=== PATIENT | male | born 1945 | race African-American/Black ===

== ENCOUNTER 2024-09-05 09:50 | Outpatient (REF) | payer MEDICAID, SELFPAY ==
--- OUTSIDE RECORDS SUMMARY | 2024-09-05 11:23 | XMS_ITS | Encounter Summary ---
Author Organization [facility] [employer] Address [address] [facility] [address] [place] [address] Care Team Providers Care Ferry Pilot Name Role Phone Unavailable Primary Care Provider Unavailabl e Reason for Visit * Reason Onset Date Comments chart prep 08/30/2024 Encounter Details Date Type Department Care Team (Late st Contact Info) Description 08/30/[address] [address] Jimi Quezada MA chart prep Social History Tobacco Use Types Packs/Day Years Used Date Smoking Tobacco: Never Assessed Sex and Gender Information Value Date Recorded Sex Assigned at Male 05/03/2022 10:37 AM EDT Legal Sex Male 10:37 AM EDT Gender Identity Male 09/03/2024 8:49 AM EST Sexual Orientation Straight 09/03/2024 8: 49 AM EST documented as of this encounter Miscellaneous Notes * Telephone Encounter - Jimi Quezada MA - 08/30/2024 3:55 PM EST Chart Prep Labs: not applicable Images: not applicable Vaccines due: yes Referrals: n a Screenings: new patient Overdue care gaps: Sbirt, SDOH, PHQ-9, Oral Health, ANI-7 documented in this encounter Plan of Treatment Upcoming Encounters Date Type Department Care Team (Late st Contact Info) Description 09/18/2024 11:30 AM EDT Telemedicine [address] [address] 12/03/2024 10:00 AM EDT Office Visit [address] [address] Name, MD Bogdan [address] [place] [address] [phone] documented as of this encounter Visit Diagnoses Not on filedocumented in this encounter
--- OUTSIDE RECORDS SUMMARY | 2024-09-05 11:23 | XMS_ITS | Encounter Summary ---
Author Organization [employer] Address [address] [facility] 7t [place] [address] Care Team Providers Care Fan Balancer Name Role Phone Unavailable Primary Care Provider Unavailabl e Reason for Visit * Reason Comments Pre-visit Planning SDOH will need to be completed in office. Encounter Details Date Type Department Care Team (Late Contact Info) Description 08/24/2024 Patient Outreach [facility] [address] [place], [place] [phone] Name, MD Bogdan [address] [place] [address] Pre-visit Planning (SDOH will need to be completed in office. ) Social History Tobacco Use Types Packs/Day Years Used Date Smoking Tobacco: Never Assessed Sex and Gender Information Value Date Recorded Sex Assigned at Male 05/03/2022 10:37 AM EDT Legal Sex Male 10:37 AM EDT Gender Identity Male 09/03/2024 8:49 AM EST Sexual Orientation Straight 09/03/2024 8: 49 AM EST documented as of this encounter Progress Notes * Cecille Razo - 08/24/2024 3:53 PM EST CC Cecille Acosta placed successful outbound call to patient for pre-visit planning. Patient name and confirmed. Patient confirms appt date and time, and has transportation arrangements. Biggest concern for appointment at this time is no concerns. Appropriate screenings completed in anticipation ofappointment. documented in this encounter Plan of Treatment Upcoming Encounters Date Type Department Care Team (Late Contact Info) Description 09/18/2024 11:30 AM EDT Telemedicine [address] [address] 12/03/2024 10:00 AM EDT Office Visit [address] [address] Name, MD Bogdan [address] [place] [phone] documented as of this encounter Visit Diagnoses Not on filedocumented in this encounter
--- OUTSIDE RECORDS SUMMARY | 2024-09-05 11:24 | XMS_ITS | Encounter Summary ---
Author Organization [employer] Address [address] [facility] [address] [place] [address] Care Team Providers Care Long Term Name Role Phone Name, Bogdan COATES Primary Care Provider [phone] Encounter Details Date Type Department Care Team (Latest Contact Info) Description 09/04/2024 Travel Social History Tobacco Use Types Packs/Day Years Used Date Smoking Tobacco: Never Smokeless Tobacco: Never Alcohol Use Standard Drinks/Week Comments Yes 0 (1 standard drink = 0.6 oz pur e alcohol) Depression Answer Date Recorded Patient Health Questionnaire-9 Score 0 09/04/2024 Patient Health Questionnaire-9 Score 0 09/04/2024 Last PHQ-9: Questionnaire Data Not on file 0 09/04/2024 Depression Answer Date Recorded Patient Health Questionnaire-2 Score 0 09/04/2024 Sex and Gender Information Value Date Recorded Sex Assigned at Male 05/03/2022 10:37 AM EDT Legal Sex Male 10:37 AM EDT Gender Identity Male 09/03/2024 8:49 AM EST Sexual Orientation Straight 09/03/2024 8: 49 AM EST documented as of this encounter Plan of Treatment Upcoming Encounters Date Type Department Care Team ( st Contact Info) Description 09/18/2024 11:30 AM EDT Telemedicine [facility] [address] [place] [address] [phone] 12/03/2024 10:00 AM EDT Office Visit [facility] [address] [place] [address] Name, MD Bogdan [address] [place] [address] documented as of this encounter Visit Diagnoses Not on filedocumented in this encounter Additional Health Concerns Assessment Noted Time PHQ-9 Depression Total Score: 0 09/05/19 11:24 AM EST documented as of this encounter Care Teams Long Term Relationship Specialty Start Date End Date Name, MD Bogdan [address] [place] [address] PCP - General Internal Medicine 09/04/24 documented as of this encounter
--- OUTSIDE RECORDS SUMMARY | 2024-09-05 11:24 | XMS_ITS | Encounter Summary ---
Author Organization [employer] Address [address] [facility] [address] [place] [address] Care Team Providers Care Letterset Press Set Up Operator Name Role Phone Name, Bogdan COATES Primary Care Provider [phone] Reason for Visit * Reason Comments Returning to medical care Encounter Details Date Type Department Care Team (Late st Contact Info) Description 09/04/2024 10:15 AM EST Office Visit [facility] [address] [place], [place] [phone] Name, MD Bogdan [address] [place] [address] Hypertension, unspecified type (Primary Dx); Pain in both knees, unspecified chronicity; Heart murmur Social History Tobacco Use Types Packs/Day Years Used Date Smoking Tobacco: Never Smokeless Tobacco: Never Tobacco Cessation:Counseling Given: Not Answered Alcohol Use Standard Drinks/Week Comments Yes 0 [...] AM EST documented as of this encounter Last Filed Vital Signs Vital Sign Reading Time Taken Comments Blood Pressure 172/87 09/04/2024 10:33 AM EST Pulse 81 09/04/2024 10:33 AM EST Temperature 36.1 ??C (97 ??F) 09/04/2024 10:33 AM EST Respiratory Rate 14 09/04/2024 10:33 AM EST Oxygen Saturation 99% 09/04/2024 10:33 AM EST Inhaled Oxygen Concentration - - Weight 79.5 kg (175 lb 3.2 oz) 09/04/2024 10:33 AM EST Height 170.2 cm (5' 7 ) 09/04/2024 10:33 AM EST Body Mass Index 27.44 09/04/2024 10:33 AM EST documented in this encounter Progress Notes * Bogdan Dee MD - 09/04/2024 10:15 AM EST Subjective Patient ID: Hiro Magallanes is a 78 y.o. male who presents for Returning to medical care. Patient comes with his son. He is returning to medical care. The patient was living in [place] and returned to the [facility] in July and plans to go back to [place] in December. He has a past medical history of hypertension and used to be treated also with a statin for primary prevention of cardiovascular disease. He has not used any medication in several years. His BP is elevated today. He denies any chest pains or shortness of breath. The patient tells me that he can walk 3-4 Kilometers withgood weather His exercise tolerance is limited by knee pain. He has occasional headaches. Review of Systems Constitutional: Negative for chills, fatigue and fever. HENT: Negative for sore throat. Respiratory: Negative for cough, chest tightness and shortness of breath. Cardiovascular: Negative for chest pain, palpitations and leg swelling. Gastrointestinal: Negative for abdominal pain and blood in stool. Musculoskeletal: Occasional bilateral knee pain related to walking. Visit Vitals BP (!) 172/87 (BP Location: Left arm, Patient Position: Sitting, BP Cuff Size: Adult) Pulse 81 Temp 97 ??F (36.1 ??C) (Temporal) Resp 14 Ht 5' 7 (1.702 m) Wt 175 lb 3.2 oz (79.5 kg) SpO2 99% BMI 27.44 kg/m?? Smoking Status Never BSA 1.94 m?? Objective Physical Exam Constitutional: Appearance: Normal appearance. Cardiovascular: Rate and Rhythm: Normal rate and regular rhythm. Heart sounds: Murmur heard. Pulmonary: Effort: Pulmonary effort is normal. No respiratory distress. Breath sounds: No wheezing, rhonchi or rales. Abdominal: Palpations: Abdomen is soft. Tenderness: There is no abdominal tenderness. Musculoskeletal: General: No swelling. Right lower leg: No edema. Left lower leg: No edema. Neurological: Mental Status: He is alert. Assessment/Plan Diagnoses and all orders for this visit: Hypertension, unspecified type Comments: I will start the patient on amlodipine for hypertension. I recommended acetaminophen as needed for knee pain. I recommended to check blood pressure at home every day. He was prescribed home BP monitor. Follow-up televisit with team nurse in about a week for BP recheck. Check fasting blood work listed below. Orders: - CBC auto differential; Future - Comprehensive Metabolic Panel; Future - Lipid Panel, Standard; Future - Albumin, Random Urine W/Creatinine; Future - ECG 12 lead Pain in both knees, unspecified chronicity - CBC auto differential; Future - Comprehensive Metabolic Panel; Future - Lipid Panel, Standard; Future - Albumin, Random Urine W/Creatinine; Future Heart murmur - ECG 12 lead Other orders - amLODIPine (Norvasc) 5 MG tablet; Take 1 tablet (5 mg) by mouth Once per day. - Blood Pressure kit; Check blood pressure once a day - acetaminophen (Tylenol Extra Strength) 500 MG tablet; Take 1 tablet (500 mg) by mouth every 8 (eight) hours if needed for moderate pain. documented in this encounter Plan of Treatment Upcoming Encounters Date Type Department Care Team (Late st Contact Info) Description 09/18/2024 11:30 AM EDT Telemedicine [facility] [address] [place] [address] 12/03/2024 10:00 AM EDT Office Visit [facility] [address] [place] [address] Name, MD Bogdan [address] [place] [phone] Scheduled Orders Name Type Priority Associated Diagnoses Orde r Schedule CBC auto differential Lab Routine Hypertension, unspecified type Pain in both knees, unspecified chronicity Expected: 09/04/2024 (Approximate), Expires: 09/04/2025 Comprehensive Metabolic Panel Lab Routine Hypertension, unspecified type Pain in both knees, unspecified chronicity Expected: 09/04/2024 (Approximate), Expires: 09/04/2025 Lipid Panel, Standard Lab Routine Hypertension, unspecified type Pain in both knees, unspecified chronicity Expected: 09/04/2024 (Approximate), Expires: 09/04/2025 Albumin, Random Urine W/Creatinine Lab Routine Hypertension, unspecified type Pain in both knees, unspecified chronicity Expected: 09/04/2024 (Approximate), Expires: 09/04/2025 documented as of this encounter Procedures Procedure Name Priority Date/Time Associated Diagnosis Comments ECG 12-LEAD Routine 09/04/2024 12:12 PM EST Hypertension, unspecified type Heart murmur documented in this encounter Results * ECG 12 lead (09/04/2024 12:12 PM EST) Narrative Name, MD Bogdan - 09/04/2024 12:12 PM EST Normal sinus rhythm. ??Heart rate of 68. ??No ST segment elevation or depression, no Q waves. ??Possible intra-atrial conduction delay us Bogdan Dee MD ECG ORDERABLES Final Result documented in this encounter Visit Diagnoses Diagnosis Hypertension, unspecified type- Primary Pain in both knees, unspecified chronicity Heart murmur Undiagnosed cardiac murmurs documented in this encounter Additional Health Concerns Assessment Noted Time PHQ-9 Depression Total Score: 0 09/05/19 11:24 AM EST documented as of this encounter Care Teams Letterset Press Set Up Operator Relationship Specialty Start Date End Date Name, MD Bogdan [address] [place] [address] PCP - General Internal Medicine 09/04/24 documented as of this encounter
--- OUTSIDE RECORDS SUMMARY | 2024-09-05 11:24 | XMS_ITS | Clinical Summary ---
Author Organization [employer] Address [address] [facility] 7t [place] [address] Care Team Providers Care Video Control Engineer Name Role Phone Name, Bogdan COATES Primary Care Provider [phone] Allergies No known active allergies Medications amLODIPine (Norvasc) 5 MG tablet Take 1 tablet (5 mg) by mouth Once per day. 30 tablet 11 09/04/2024 09/05/19 26 Active Blood Pressure kit Check blood pressure once a day 1 kit 09/04/2024 Active acetaminophen (Tylenol Extra Strength) 500 MG tablet Take 1 tablet (500 mg) by mouth every 8 (eight) hours if needed for moderate pain. 90 tablet 09/04/2024 10/05/19 25 Active Encounters Date Type Department Care Team Description 09/04/2024 10:15 AM EST Office Visit [facility] [address] [place] [phone] Bogdan Dee MD Hypertension, unspecified type (Primary Dx); Pain in both knees, unspecified chronicity; Heart murmur 09/04/2024 Travel 08/30/2024 Telephone [facility] [address] [place] [address] Jimi Quezada MA chart prep 08/24/2024 Patient Outreach [facility] [address] [place], [place] [phone] Bogdan Dee MD Pre-visit Planning (SDOH will need to be completed in office. ) 06/29/2024 Telephone [facility] [address] [place] [address] Georgi Cornell MD New patient appt. 06/29/2024 Telephone [facility] [address] [place] [address] Georgi Cornell MD Appointment Request from Last 3 Months Social History Tobacco Use Types Packs/Day Years [...] Orientation Straight 09/03/2024 8: 49 AM EST Last Filed Vital Signs Vital Sign Reading [...] Mass Index 27.44 09/04/2024 10:33 AM EST Plan of Treatment Upcoming Encounters Date Type Department Care Team (Late st Contact Info) Description 09/18/2024 11:30 AM EDT Telemedicine [address] [address] 12/03/2024 10:00 AM EDT Office Visit [address] [address] Name, MD Bogdan [address] [place] [phone] Health Maintenance Due Date Last Done Comments SDOH Screening 1945 Hepatitis C Screening 12/11/1965 DTaP/Tdap/Td Vaccines (1 - Tdap) 12/11/1966 Pneumococcal Vaccine: 50+ Years (1 of 1 - PCV) 12/11/1997 Zoster Vaccines (1 of 2) 12/11/1997 RSV Patients and Patients Aged 60 years or older (1 - 1-dose 75+ series) 12/11/2022 COVID-19 Vaccine (1 - 2023-2 5 season) 2024 Influenza Vaccine (#1) 2024 Lipid Panel 01/09/2025 01/10/2020 Alcohol/Substance Use Screening 09/04/2025 09/04/2024 Depression Screening 09/04/2025 09/04/2024, 09/04/2024 Tobacco Screening 09/04/2025 09/04/2024 HIB Vaccines Aged Out No longer eligi ble based on patient's age to complete this topic HPV Vaccines Aged Out No longer eligi ble based on patient's age to complete this topic Hepatitis A Vaccines Aged Out No long er eligible based on patient's age to complete this topic Hepatitis B Vaccines Aged Out No long er eligible based on patient's age to complete this topic IPV Vaccines Aged Out No longer eligi ble based on patient's age to complete this topic Meningococcal Vaccine Aged Out No peggy deja eligible based on patient's age to complete this topic RSV under 20 months Aged Out No longe r eligible based on patient's age to complete this topic Rotavirus Vaccines Aged Out No longer eligible based on patient's age to complete this topic Procedures Procedure Name Priority Date/Time Associated Diagnosis Comments ECG 12-LEAD Routine 09/04/2024 12:12 PM EST Hypertension, unspecified type Heart murmur LIPID PANEL, STANDARD Routine 01/10/2020 10:17 AM EDT from Last 3 Months or Most Recently Relevant to Health Maintenance Results * ECG 12 lead (09/04/2024 12:12 PM EST) Narrative Name, MD Bogdan - 09/04/2024 12:12 PM EST Normal sinus rhythm. ??Heart rate of 68. ??No ST segment elevation or depression, no Q waves. ??Possible intra-atrial conduction delay us Bogdan Name ECG ORDERABLES Final Result * (ABNORMAL) LIPID PANEL, STANDARD (01/10/2020 10:17 AM EDT) Cholesterol, Total 262(H) <200 mg/dL [facility] Cholesterol, Total 262(H) <200 mg/dL [facility] Triglycerides 146 <150 mg/dL [facility] HDL Cholesterol 51 > OR = 40 mg/dL [facility] HDL Cholesterol 51 > OR = 40 mg/dL [facility] Triglycerides 146 <150 mg/dL [facility] LDL Cholesterol 182(H) mg/dL (calc) [facility] Comment: Reference range: <100 ?? Desirable range <100 mg/dL for primary prevention; ?? <70 mg/dL for patients with CHD or diabetic patients ?? with > or = 2 CHD risk factors. ?? LDL-C is now calculated using the Robson-Stokes ?? calculation, which is a validated novel method providing ?? better accuracy than the Friedewald equation in the ?? estimation of LDL-C. ?? Robson SS et al. EDUAR. 2013;310(19): 6459-9359 ?? (http://[employer].SchemaLogic/faq/RJO924) LDL Cholesterol 182(H) mg/dL (calc) [facility] Comment: Reference range: <100 ?? Desirable range <100 mg/dL for primary prevention; ?? <70 mg/dL for patients with CHD or diabetic patients ?? with > or = 2 CHD risk factors. ?? LDL-C is now calculated using the Robson-Stokes ?? calculation, which is a validated novel method providing ?? better accuracy than the Friedewald equation in the ?? estimation of LDL-C. ?? Robson SS et al. EDUAR. 2013;310(19): 2357-4169 ?? (http://[employer].SchemaLogic/faq/FWW215) Chol/HDLC Ratio 5.1(H) <5.0 (calc) [facility] Chol/HDLC Ratio 5.1(H) <5.0 (calc) [facility] Non-HDL Cholesterol 211(H) <130 mg/dL (calc) [facility] Comment: For patients with diabetes plus 1 major ASCVD risk ?? factor, treating to a non-HDL-C goal of <100 mg/dL ?? (LDL-C of <70 mg/dL) is considered a therapeutic ?? option. Non-HDL Cholesterol 211(H) <130 mg/dL (calc) [facility] Comment: For patients with diabetes plus 1 major ASCVD risk ?? factor, treating to a non-HDL-C goal of <100 mg/dL ?? (LDL-C of <70 mg/dL) is considered a therapeutic ?? option. 01/10/2020 10:1 7 AM EDT us Marjorie Egan MD LAB BLOOD ORDERABLES Final Result [facility] [address] from Last 3 Months or Most Recently Relevant to Health Maintenance [facility] Care Teams Video Control Engineer Relationship Specialty Start Date End Date Name, MD Bogdan [address] [place] [phone] PCP - General Internal Medicine 09/04/24
[2024-09-05 14:03] LABS: MANUAL DIFF FLAG NO
[2024-09-05 14:08] LABS: Basophils Percent Auto 0.7 % (0-2); Eosinophils Absolute Auto 0.4 X10*3/uL (0.0-0.4); Eosinophils Percent Auto 7.2 % (0-4); Hematocrit 46.9 % (42.0-52.0); Imm Gran Abs Auto 0.01 X10*3/uL (0.00-0.03); Imm Gran Pct Auto 0.2 % (0.0-0.4); Lymphocytes Absolute Auto 2.8 X10*3/uL (1.2-4.9); Lymphocytes Percent Auto 49.8 % (20-40); Mean Corpuscular Hemoglobin 28.7 pg (27.0-33.0); Mean Corpuscular Volume 89.7 fL (80.0-98.0); Mean Platelet Volume 11.3 fL (9.4-12.4); Monocytes Absolute Auto 0.8 X10*3/uL (0.1-1.2); Monocytes Percent Auto 14.8 % (2-11); Neutrophils Absolute Auto 1.6 x10*3/uL (2.0-8.3); Neutrophils Percent Auto 27.3 % (45-73); Platelet Count 131 X10*3/uL (160-400); Red Blood Count 5.23 X10*6/uL (4.60-5.80); Red Cell Distribution Width 14.3 % (11.0-16.0); White Blood Count 5.7 X10*3/uL (4.8-10.8)
[2024-09-05 14:44] LABS: Alanine Aminotransferase 23 U/L (0-40); Alkaline Phosphatase 84 U/L (39-117); Anion Gap 10 (12-20); Aspartate Amino Transferase 27 U/L (5-37); Bilirubin Total 0.7 mg/dL (0.0-1.0); Blood Urea Nitrogen 16 mg/dL (9-16); Calcium 9.7 mg/dL (8.4-10.2); Carbon Dioxide 27 mmol/L (22-29); Chloride 107 mmol/L (96-108); Cholesterol 228 mg/dL (<200); Estimated Glomerular Filt Rate > 60; Glucose Random 89 mg/dL (60-115); HDL Cholesterol 58 mg/dL (>40); LDL Cholesterol Calculated 146 mg/dL (<100); Sodium 140 mmol/L (135-145); Total Protein 8.2 g/dL (6.5-8.0); Triglycerides 120 mg/dL (<150)
== END 2024-09-05 09:51 | disposition home or self-care (01) ==
LOC: HO.CHCLDS 09:50
PROVIDERS: Visit Provider Internal Medicine Geriatric Medicine
DX: M25.561 Pain in right knee (principal); M25.562 Pain in left knee; I10 Essential (primary) hypertension
CPT/HCPCS: 36415; 80053; 80061; 85025

== ENCOUNTER 2024-09-06 10:47 | Outpatient (REF) | payer MEDICAID, SELFPAY ==
--- OUTSIDE RECORDS SUMMARY | 2024-09-06 13:01 | XMS_ITS | Encounter Summary ---
Author Organization [employer] Address [address] [facility] [address] [place] [address] Care Team Providers Care Renal Medicine Physician Name Role Phone Name, Bogdan COATES Primary Care Provider [phone] Encounter Details Date Type Department Care Team [...] Info) Description 09/18/2024 11:30 AM EDT Telemedicine [facility] [address] [place] [address] [phone] 12/03/2024 10:00 AM EDT Office Visit [facility] [address] [place] [phone] Name, MD Bogdan [address] [place] [phone] documented as of this encounter Visit Diagnoses Not on filedocumented in this encounter Additional Health Concerns Assessment Noted Time PHQ-9 Depression Total Score: 0 09/05/19 11:24 AM EST documented as of this encounter Care Teams Renal Medicine Physician Relationship Specialty Start Date End Date Name, MD Bogdan [address] [place] [address] PCP - General Internal Medicine 09/04/24 documented as of this encounter
--- OUTSIDE RECORDS SUMMARY | 2024-09-06 13:01 | XMS_ITS | Encounter Summary ---
Author Organization [employer] Address [address] [facility] 7t [place] [address] Care Team Providers Care Lead Network Engineer Name Role Phone Unavailable Primary Care Provider Unavailabl e Reason for Visit * Reason Comments Pre-visit Planning SDOH will need to be completed in office. Encounter Details Date Type Department Care Team (Late Contact Info) Description 08/24/2024 Patient Outreach [facility] [address] [place], [place] [phone] Name, MD Bogdan [address] [place] [address] Pre-visit Planning (SDOH will need to be [...] Info) Description 09/18/2024 11:30 AM EDT Telemedicine [address] [address] 12/03/2024 10:00 AM EDT Office Visit [address] [address] Name, MD Bogdan [address] [place] [phone] documented as of this encounter Visit Diagnoses Not on filedocumented in this encounter
--- OUTSIDE RECORDS SUMMARY | 2024-09-06 13:01 | XMS_ITS | Clinical Summary ---
Author Organization [employer] Address [address] [facility] [address] [place] [address] Care Team Providers Care Photograph Mounter Name Role Phone Name, Bogdan COATES Primary Care Provider [phone] Allergies No known active allergies Medications amLODIPine [...] pain. 90 tablet 09/04/2024 10/05/19 25 Active atorvastatin (Lipitor) 40 MG tablet Take 1 tablet (40 mg) by mouth Once per day. 30 tablet 11 09/06/2024 09/07/19 26 Active Encounters Date Type Department Care Team Description 09/06/2024 Telephone [facility] [address] [place] [address] Keyanna Castaneda RN 09/06/2024 Orders Only [facility] [address], [place] [phone] Bogdan Dee MD Low platelet count (CMS/HCC) (Primary Dx) 09/04/2024 10:15 AM EST Office Visit [facility] [address], [place] [phone] Bogdan Dee MD Hypertension, unspecified type (Primary Dx); Pain in both knees, unspecified chronicity; Heart murmur 09/04/2024 Travel 08/30/2024 Telephone [facility] [address], [place] [phone] Jimi Quezada MA chart prep 08/24/2024 Patient Outreach [facility] [address] [place] [address] Bogdan Dee MD Pre-visit Planning (SDOH will need to be completed in office. ) 06/29/2024 Telephone [facility] [address] [place] [address] Georgi Cornell MD New patient appt. 06/29/2024 Telephone [facility] [address] [place] [address] Georgi Cornell MD Appointment Request from Last [...] Info) Description 09/18/2024 11:30 AM EDT Telemedicine [facility] [place], [place] [phone] 12/03/2024 10:00 AM EDT Office Visit [facility] [place] [address] Name, MD Bogdan [facility] [place] [address] Health Maintenance Due Date Last Done Comments SDOH Screening 1945 Hepatitis C Screening 12/11/1965 DTaP/Tdap/Td Vaccines (1 - Tdap) 12/11/1966 Pneumococcal Vaccine: 50+ Years (1 of 1 - PCV) 12/11/1997 Zoster Vaccines (1 of 2) 12/11/1997 RSV Patients and Patients Aged 60 years or older (1 - 1-dose 75+ series) 12/11/2022 COVID-19 Vaccine ( - 2023-2 5 season) 2024 Influenza Vaccine (#1) 2024 Alcohol/Substance Use Screening 09/04/2025 09/04/2024 Depression Screening 09/04/2025 09/04/2024, 09/04/2024 Tobacco Screening 09/04/2025 09/04/2024 Lipid Panel 09/05/2029 09/05/2024, 01/10/2020 HIB Vaccines Aged Out No longer eligi [...] Procedure Name Priority Date/Time Associated Diagnosis Comments LIPID PANEL, STANDARD Routine 09/05/2024 9:55 AM EST Hypertension, unspecified type Pain in both knees, unspecified chronicity COMPREHENSIVE METABOLIC PANEL Routine 09/05/2024 9:55 AM EST Hypertension, unspecified type Pain in both knees, unspecified chronicity CBC WITH AUTO DIFFERENTIAL Routine 09/05/2024 9:55 AM EST Hypertension, unspecified type Pain in both knees, unspecified chronicity ECG 12-LEAD Routine 09/04/2024 12:12 PM EST Hypertension, unspecified type Heart murmur from Last 3 Months Results * (ABNORMAL) CBC auto differential (09/05/2024 9:55 AM EST) White Blood Count 5.7 4.8 - 10.8 X10*3/uL [facility] Red Blood Count 5.23 4.60 - 5.80 X10*6/uL [facility] Hemoglobin 15.0 14.0 - 18.0 g/dl [facility] Hematocrit 46.9 42.0 - 52.0 % [facility] Mean Corpuscular Volume 89.7 80.0 - 98.0 fL [facility] Mean Corpuscular Hemoglobin 28.7 27.0 - 33.0 pg [facility] Mean Corpuscular HGB Conc 32.0 31.0 - 36.0 g/dl [facility] Red Cell Distribution Width 14.3 11.0 - 16.0 % [facility] Platelet Count 131(L) 160 - 400 X10*3/uL [facility] Mean Platelet Volume 11.3 9.4 - 12.4 fL [facility] Neutrophils Percent Auto 27.3(L) 45 - 73 % [facility] Imm Gran Pct Auto 0.2 0.0 - 0.4 % [facility] Lymphocytes Percent Auto 49.8(H) 20 - 40 % [facility] Monocytes Percent Auto 14.8(H) 2 - 11 % [facility] Eosinophils Percent Auto 7.2(H) 0 - 4 % [facility] Basophils Percent Auto 0.7 0 - 2 % [facility] NRBC Pct Auto 0.0 0.0 - 0.2 /100WBC [facility] Neutrophils Absolute Auto 1.6(L) 2.0 - 8.3 x10*3/uL [facility] Imm Gran Abs Auto 0.01 0.00 - 0.03 X10*3/uL [facility] Lymphocytes Absolute Auto 2.8 1.2 - 4.9 X10*3/uL [facility] Monocytes Absolute Auto 0.8 0.1 - 1.2 X10*3/uL [facility] Eosinophils Absolute Auto 0.4 0.0 - 0.4 X10*3/uL [facility] Basophils Absolute Auto 0.0 0.0 - 0.2 X10*3/uL [facility] NRBC Abs Auto 0.000 0.0 - 0.012 X10*3/uL [facility] Blood Venous blood specimen / Unknown 09/05/2024 9:55 AM EST 09/05/2024 1:59 PM EST us Bogdan Name MD LAB BLOOD ORDERABLES Final Resul t [facility] [address] [place] [phone] * (ABNORMAL) Lipid Panel, Standard (09/05/2024 9:55 AM EST) Triglycerides 120 <150 mg/dL [facility] Comment:Desirable Triglyceri de: less than 150 mg/dLBorderline High Triglyceride 150-199 mg/dLHigh Triglyceride: 200-499 mg/dLVery High Triglyceride: greater than or equal to 5OO mg/dL Cholesterol 228(H) <200 mg/dL [facility] Comment:Desirable Cholestero l: less than 200 mg/dLBorderline High Cholesterol: 200-239 mg/dLHigh Cholesterol: greater than 239 mg/dL LDL Cholesterol Calculated 146(H) <100 mg/dL [facility] Comment:Desirable LDL: less than 100 mg/dLNear Optimal/Above Optimal LDL: 110- 129 mg/dLBorderline High LDL: 130-159 mg/dLHigh LDL: 160-189 mg/dLVery High LDL: greater than or equal to 190 mg/dL HDL Cholesterol 58 >40 mg/dL [facility] Comment:Desirable HDL: great er than 40 mg/dL Note: This HDL assay may give artificially low results in patients with liver disease. Blood Venous blood specimen / Unknown 09/05/2024 9:55 AM EST 09/05/2024 2:04 PM EST us Bogdan Name MD LAB BLOOD ORDERABLES Final Resul t [facility] [address] [place] [phone] * (ABNORMAL) Comprehensive Metabolic Panel (09/05/2024 9:55 AM EST) Sodium 140 135 - 145 mmol/L [facility] Potassium 4.0 3.3 - 5.1 mmol/L [facility] Chloride 107 96 - 108 mmol/L [facility] Carbon Dioxide 27 22 - 29 mmol/L [facility] Anion Gap 10(L) 12 - 20 [facility] Urea Nitrogen (BUN) 16 9 - 16 mg/dL [facility] Creatinine, Serum 0.98 0.5 - 1.4 mg/dL [facility] Estimated Glomerular Filt Rate >60 [facility] Comment:Chronic Kidney Disea se: Estimated GFR < 60 mL/min/[id number] Kidney Disease: Estimated GFR < 15 mL/min/1.73m2 Glucose 89 60 - 115 mg/dL [facility] Calcium 9.7 8.4 - 10.2 mg/dL [facility] Bilirubin, Total 0.7 0.0 - 1.0 mg/dL [facility] Aspartate Amino Transferase 27 5 - 37 U/L [facility] Alanine Aminotransferase 23 0 - 40 U/L [facility] Total Protein 8.2(H) 6.5 - 8.0 g/dL [facility] Albumin Level 4.0 3.5 - 5.0 g/dL [facility] Alkaline Phosphatase 84 39 - 117 U/L [facility] Blood Venous blood specimen / Unknown 09/05/2024 9:55 AM EST 09/05/2024 2:04 PM EST us Bogdan Dee MD LAB BLOOD ORDERABLES Final Resul t [facility] [address] [place] [phone] * ECG 12 lead (09/04/2024 12:12 PM EST) Narrative Name, MD Bogdan - 09/04/2024 12:12 PM EST Normal sinus rhythm. ??Heart rate of 68. ??No ST segment elevation or depression, no Q waves. ??Possible intra-atrial conduction delay us Bogdan Dee MD ECG ORDERABLES Final Result from Last 3 Months Insurance [facility] [employer] Care Teams Photograph Mounter Relationship Specialty Start Date End Date Name, MD Bogdan [address] [place] [phone] PCP - General Internal Medicine 09/04/24
--- OUTSIDE RECORDS SUMMARY | 2024-09-06 13:01 | XMS_ITS | Encounter Summary ---
Author Organization [employer] Address [address] [facility] [address] [place] [address] Care Team Providers Care Location Analyst Name Role Phone Name, Bogdan COATES Primary Care Provider [phone] Reason for Visit * Reason Comments Returning to medical care Encounter Details Date Type Department Care Team (Late st Contact Info) Description 09/04/2024 10:15 AM EST Office Visit [facility] [address] [place], [place] [phone] Name, MD Bogdan [address] [place] [address] Hypertension, unspecified type (Primary Dx); Pain in [...] living in [place] and returned to the [facility] in July and plans to go back [...] 09/18/2024 11:30 AM EDT Telemedicine [facility] [address] [place] [phone] 12/03/2024 10:00 AM EDT Office Visit [facility] [address] [place] [phone] Name, MD Bogdan [address] [place] [phone] Scheduled Orders Name Type Priority Associated Diagnoses Orde r Schedule Albumin, Random Urine W/Creatinine Lab Routine Hypertension, unspecified type Pain in both knees, unspecified chronicity Expected: 09/04/2024 (Approximate), Expires: 09/04/2025 documented as of this encounter Procedures Procedure Name Priority Date/Time Associated Diagnosis Comments CBC WITH AUTO DIFFERENTIAL Routine 09/05/2024 9:55 AM EST Hypertension, unspecified type Pain in both knees, unspecified chronicity LIPID PANEL, STANDARD Routine 09/05/2024 9:55 AM EST Hypertension, unspecified type Pain in both knees, unspecified chronicity COMPREHENSIVE METABOLIC PANEL Routine 09/05/2024 9:55 AM EST Hypertension, unspecified type Pain in both knees, unspecified chronicity ECG 12-LEAD Routine 09/04/2024 12:12 PM EST Hypertension, unspecified type Heart murmur documented in this encounter Results * (ABNORMAL) Lipid Panel, Standard (09/05/2024 9:55 AM EST) Triglycerides 120 <150 mg/dL [facility] Comment:Desirable Triglyceri de: less than 150 mg/dLBorderline High Triglyceride 150-199 mg/dLHigh Triglyceride: 200-499 mg/dLVery High Triglyceride: greater than or equal to 5OO mg/dL Cholesterol 228(H) <200 mg/dL [facility] Comment:Desirable Cholestero l: less than 200 mg/dLBorderline High Cholesterol: 200-239 mg/dLHigh Cholesterol: greater than 239 mg/dL LDL Cholesterol Calculated 146(H) <100 mg/dL [facility] Comment:Desirable LDL: less than 100 mg/dLNear Optimal/Above Optimal LDL: 110- 129 mg/dLBorderline High LDL: 130-159 mg/dLHigh LDL: 160-189 mg/dLVery High LDL: greater than or equal to 190 mg/dL HDL Cholesterol 58 >40 mg/dL [facility] Comment:Desirable HDL: great er than 40 mg/dL Note: This HDL assay may give artificially low results in patients with liver disease. Blood Venous blood specimen / Unknown 09/05/2024 9:55 AM EST 09/05/2024 2:04 PM EST us Bogdan Dee MD LAB BLOOD ORDERABLES Final Resul t Performing Organization Address [facility]/ZIP Co de Phone Number [facility] [address] [place] [address] [phone] * (ABNORMAL) Comprehensive Metabolic Panel (09/05/2024 9:55 AM EST) Sodium 140 135 - 145 mmol/L [facility] Potassium 4.0 3.3 - 5.1 mmol/L [facility] Chloride 107 96 - 108 mmol/L [facility] Carbon Dioxide 27 22 - 29 mmol/L [facility] Anion Gap 10(L) 12 - 20 [facility] Urea Nitrogen (BUN) 16 9 - 16 mg/dL [facility] Creatinine, Serum 0.98 0.5 - 1.4 mg/dL [facility] Estimated Glomerular Filt Rate >60 [facility] Comment:Chronic Kidney Disea se: Estimated GFR < 60 mL/min/[id number] Kidney Disease: Estimated GFR < 15 mL/min/1.73m2 Glucose 89 60 - 115 mg/dL [facility] Calcium 9.7 8.4 - 10.2 mg/dL [facility] Bilirubin, Total 0.7 0.0 - 1.0 mg/dL [facility] Aspartate Amino Transferase 27 5 - 37 U/L [facility] Alanine Aminotransferase 23 0 - 40 U/L [facility] Total Protein 8.2(H) 6.5 - 8.0 g/dL [facility] Albumin Level 4.0 3.5 - 5.0 g/dL [facility] Alkaline Phosphatase 84 39 - 117 U/L [facility] Blood Venous blood specimen / Unknown 09/05/2024 9:55 AM EST 09/05/2024 2:04 PM EST Bogdan Dee MD LAB BLOOD ORDERABLES Final Resul t Performing Organization Address City/[facility]/ZIP Co de Phone Number [facility] [address] [place] [phone] * (ABNORMAL) CBC auto differential (09/05/2024 9:55 AM EST) White Blood Count 5.7 4.8 - 10.8 X10*3/uL [facility] Red Blood Count 5.23 4.60 - 5.80 X10*6/uL [facility] Hemoglobin 15.0 14.0 - 18.0 g/dl [facility] Hematocrit 46.9 42.0 - 52.0 % [facility] Mean Corpuscular Volume 89.7 80.0 - 98.0 fL [facility] Mean Corpuscular Hemoglobin 28.7 27.0 - 33.0 pg [facility] Mean Corpuscular HGB Conc 32.0 31.0 - 36.0 g/dl [facility] Red Cell Distribution Width 14.3 11.0 - 16.0 % [facility] Platelet Count 131(L) 160 - 400 X10*3/uL [facility] Mean Platelet Volume 11.3 9.4 - 12.4 fL [facility] Neutrophils Percent Auto 27.3(L) 45 - 73 % [facility] Imm Gran Pct Auto 0.2 0.0 - 0.4 % [facility] Lymphocytes Percent Auto 49.8(H) 20 - 40 % [facility] Monocytes Percent Auto 14.8(H) 2 - 11 % [facility] Eosinophils Percent Auto 7.2(H) 0 - 4 % [facility] Basophils Percent Auto 0.7 0 - 2 % [facility] NRBC Pct Auto 0.0 0.0 - 0.2 /100WBC [facility] Neutrophils Absolute Auto 1.6(L) 2.0 - 8.3 x10*3/uL [facility] Imm Gran Abs Auto 0.01 0.00 - 0.03 X10*3/uL [facility] Lymphocytes Absolute Auto 2.8 1.2 - 4.9 X10*3/uL [facility] Monocytes Absolute Auto 0.8 0.1 - 1.2 X10*3/uL [facility] Eosinophils Absolute Auto 0.4 0.0 - 0.4 X10*3/uL [facility] Basophils Absolute Auto 0.0 0.0 - 0.2 X10*3/uL [facility] NRBC Abs Auto 0.000 0.0 - 0.012 X10*3/uL [facility] Blood Venous blood specimen / Unknown 09/05/2024 9:55 AM EST 09/05/2024 1:59 PM EST us Bogdan Dee MD LAB BLOOD ORDERABLES Final Resul t [facility] [address] [place] [address] [phone] * ECG 12 lead (09/04/2024 12:12 PM EST) Narrative NameBogdan MD - 09/04/2024 12:12 PM EST Normal sinus rhythm. ??Heart rate of 68. ??No ST segment elevation or depression, no Q waves. ??Possible intra-atrial conduction delay Bogdan Dee MD ECG ORDERABLES Final Result documented in this encounter Visit Diagnoses Diagnosis Hypertension, unspecified type- Primary Pain in both knees, unspecified chronicity Heart murmur Undiagnosed cardiac murmurs documented in this encounter Additional Health Concerns Assessment Noted Time PHQ-9 Depression Total Score: 0 09/05/19 25 11:24 AM EST documented as of this encounter Care Teams Location Analyst Relationship Specialty Start Date End Date Name, MD Bogdan [address] [place] [address] PCP - General Internal Medicine 09/04/24 documented as of this encounter
--- OUTSIDE RECORDS SUMMARY | 2024-09-06 13:02 | XMS_ITS | Encounter Summary ---
Author Organization [employer] Address [address] [facility] [address] [place] [address] Care Team Providers Care Disease Case Manager Name Role Phone Name, Bogdan COATES Primary Care Provider [phone] Encounter Details Date Type Department Care Team (Late st Contact Info) Description 09/06/2024 Telephone [facility] [address] [place], [place] [phone] Keyanna Castaneda RN Social History Tobacco Use Types Packs/Day Years [...] as of this encounter Miscellaneous Notes * Addendum Note - Bogdan Hernandez MD - 09/06/2024 9:44 AM ESTAddended by: BOGDAN HERNANDEZ on: 09/06/2024 09:44 AM Modules accepted: Orders * Telephone Encounter - Keyanna Castaneda RN - 09/06/2024 9:34 AM EST Tc to pt to let them know per PCP Please call the patient or his son, on the recent blood work cholesterol is high, I recommended starting Atorvastatin for the prevention of heart attacks and strokes. If patient agrees I will send med to pharmacy on file. Encourage patient to call if he has any problems with the med. I also want to repeat his CBC in the next 2-3 weeks since his platelets are slightly low . Son verbalized understanding and agrees with plan to have pt start on Atorvastatin. Sonadvised we'll call back once it has been sent to the pharmacy and expressed understanding. Message forwarded to PCP for review. documented in this encounter Plan of Treatment Upcoming Encounters Date Type Department Care Team (Late st Contact Info) Description 09/18/2024 11:30 AM EDT Telemedicine [address] [address] 12/03/2024 10:00 AM EDT Office Visit [address] [address] Name, MD Bogdan [address] [place] [phone] documented as of this encounter Visit Diagnoses Not on filedocumented in this encounter Additional Health Concerns Assessment Noted Time PHQ-9 Depression Total Score: 0 09/05/19 11:24 AM EST documented as of this encounter Care Teams Disease Case Manager Relationship Specialty Start Date End Date NameBogdan MD [address] [place] [phone] PCP - General Internal Medicine 09/04/24 documented as of this encounter
--- OUTSIDE RECORDS SUMMARY | 2024-09-06 13:02 | XMS_ITS | Encounter Summary ---
Author Organization [employer] Address [address] [facility] [address] [place] [address] Care Team Providers Care Range Manager Name Role Phone Name, Bogdan COATES Primary Care Provider [phone] Encounter Details Date Type Department Care Team (Late Contact Info) Description 09/06/2024 Orders Only [facility] [address] [place] [phone] Name, MD Bogdan [address] [place] [phone] Low platelet count (CMS/HCC) (Primary Dx) Social History Tobacco Use Types Packs/Day Years [...] Info) Description 09/18/2024 11:30 AM EDT Telemedicine [address] [phone] 12/03/2024 10:00 AM EDT Office Visit [address] [address] Name, MD Bogdan [address] [place] [address] Scheduled Orders Name Type Priority Associated Diagnoses Orde r Schedule CBC auto differential Lab Routine Low platelet count (CMS/HCC) Expected: 09/06/2024 (Approximate), Expires: 09/06/2025 documented as of this encounter Visit Diagnoses Diagnosis Low platelet count (CMS/HCC)- Primary documented in this encounter Additional Health Concerns Assessment Noted Time PHQ-9 Depression Total Score: 0 09/05/19 11:24 AM EST documented as of this encounter Care Teams Range Manager Relationship Specialty Start Date End Date Name, [place] [address] PCP - General Internal Medicine 09/04/24 documented as of this encounter
--- OUTSIDE RECORDS SUMMARY | 2024-09-06 13:02 | XMS_ITS | Encounter Summary ---
Author Organization [facility] [employer] Address [address] [facility] [address] [place] [address] Care Team Providers Care Access Services Assistant Name Role Phone Unavailable Primary Care Provider Unavailabl e Reason for Visit * Reason Onset Date Comments chart prep 08/30/2024 Encounter Details Date Type Department Care Team (Late st Contact Info) Description 08/30/[address] [address] Jimi Quezada [place] chart prep Social History [...] Info) Description 09/18/2024 11:30 AM EDT Telemedicine [address] [address] 12/03/2024 10:00 AM EDT Office Visit [address] [address] Name, MD Bogdan [address] [place] [phone] documented as of this encounter Visit Diagnoses Not on filedocumented in this encounter
[2024-09-06 15:23] LABS: Creatinine Urine 54.05 mg/dL; Microalbumin Urine < 5.0 mg/L
== END 2024-09-06 10:48 | disposition home or self-care (01) ==
LOC: HO.CHCLNP 10:47
PROVIDERS: Visit Provider Internal Medicine Geriatric Medicine
DX: I10 Essential (primary) hypertension (principal); M25.561 Pain in right knee; M25.562 Pain in left knee
CPT/HCPCS: 82043; 82570